=== PATIENT | male | born 1975 | race Caucasian/White ===

== ENCOUNTER 2024-06-17 13:19 | Outpatient (AMB) | payer OTHER, SELFPAY ==
--- NOTE | 2024-06-17 13:21 | A.OFFPC_ITS ---
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 Intake Note: patient here for new patient visit c/o bilateral redness on back of hand Ship'S Officer Required: No Allergies No Known Allergies Allergy (Verified 06/17/24 13:42) Medication List - Last Reconciled 06/17/24 by Elin Gallardo CNP No Known Home Meds Tobacco use date assessed: 06/17/24 Dental Screening Dental Screen Date: 06/17/24 Did you have a dental visit in the last 12 months?: No Did you have a dental problem in the last 6 months where you did not have access to dental care?: No Was dental information given to patient?: Patient has dentist HPI HPI Comments History of Present Illness Details New patient Prior PCP? - [facility] Last office visit/CPE - Over 10 years Last CPE 07/07/2023 at [facility] Last Labs - About 12 months ago Acute issue(s) - Reports red, moderately itchy rash to the dorsum of both hands, the rash started about a year ago and has spread. He also reports intermittent blisters the forearms to his forearms and lower legs (below the knees) and becomes itchy and scabbed after he scratches them. He has apply multiple [id number]-[id number] creams without improvement. No one in his household has similar rash. He has never been followed by Dermatology. Past Medical History - None Surgical History - None Family History - Mom: HTN, DM, HLD Social History - Nonsmoker. Does not vape. Does not dr ink alcohol. Denies recreational drug use - Has been making healthy dietary choice s. Walks frequently. Generally sleep well Health maintenance - He has never had an eye exam. Referred to Ophthalmology for routine eye care - Last dental visit was couple of years ago; encouraged to schedule an appointment with his dentist for routine dental care - He has never been vaccinated for tetan us; encouraged vaccination but patient declines - Has not been vaccinated for the flu ; declines vaccination - He has never been vaccinated for shing les or pneumonia; encouraged to get vaccinated for both but patient declines - He has never had a colonoscopy. Referr ed [place] [facility] Family History (Updated 06/17/24 @ 13:38 by Latoya Lopez MA) Mother High blood pressure High cholesterol Diabetes Social History Housing: House Patient Tobacco Use Status: Never used Tobacco e-Cigarette/Vaping Use: Never Used Second Hand Smoke Exposure: No service: No Current occupational status: employed Current occupation: line haul truck driver Current occupational exposures/hazards: No Cognitive needs: No Hearing needs: No Vision needs: No Questionnaire PHQ-9 Over the last 2 weeks, how often have you been bothered by any of the following problems? 1. Little interest or pleasure in doing things: not at all 2. Feeling down, depressed, or hopeless: not at all 3. Trouble falling or staying asleep, or sleeping too much: not at all 4. Feeling tired or having little energy: not at all 5. Poor appetite or overeating: not at all 6. Feeling bad about yourself - or that you are a failure or have let yourself or your family down: not at all 7. Trouble concentrating on things, such as reading the newspaper or watching television: not at all 8. Moving or speaking so slowly that other people could have noticed. Or the opposite - being so fidgety or restless that you have been moving around a lot more than usual: not at all 9. Thoughts that you would be better off or of hurting yourself in some way: not at all Total score: 0 Depression Screening Interpretation: Negative Depression Screening Done: Yes 95524 - PHQ-9 Billing: Yes Source: Developed by Drs. Charly Mishra, Kristin Mcclure, Venkatesh Frey and colleagues, with an educational pete from [employer]. Thrive Questionnaire Date Thrive assessed: 06/17/24 I am a: Patient What is your living situation today?: I have a steady place to live Within the past 12 months, did the food you bought not last and you didn't have the money to get more?: I choose not to answer this question Within the past 12 months, did you worry whether your food would run out before you got money to buy more?: I choose not to answer this question Do you have trouble paying for medicines?: No Do you have trouble getting transportation to medical appointments?: No Do you have trouble paying your heating and electricity bill?: No Do you have trouble taking care of your child, family member or friend?: No Do you have trouble with day-to-day activities such as bathing, preparing meals, shopping, managing finances, etc.?: No Are you currently unemployed and looking for a job?: No Are you interested in more education?: No Please select the resources that you would like help with: None Currently or been in a relationship where the following occur: I choose not to answer THRIVE Score: 0 AUDIT C Alcohol Use Questionnaire (AUDIT-C) 1. How often do you have a drink containing alcohol?: Never Total Score: 0 Score Reviewed/Action Taken: Yes MEME-7 AMB Questionnaire MEME-7 Date MEME - 7 assessed: 06/17/24 Feeling nervous, anxious, or on edge: 0 = Not at all Not being able to stop or control worryin = Not at all Worrying too much about different things: 0 = Not at all Trouble relaxin = Not at all Being so restless that it is hard to sit still: 0 = Not at all Becoming easily annoyed or irritable: 0 = Not at all Feeling afraid as if something awful might happen: 0 = Not at all Total MEME-7 score (0-4 normal; 5-9 mild; 10-14 moderate; 15-21 severe): 0 Source: Developed by Drs. Charly Mishra, Kristin Mcclure, Venkatesh Frey and colleagues, with an educational pete from [employer]. MEME-7 Assessment Billing MEME-7 Assessment Tool: MEME-7 Assessment 36524 Review of Systems Const Details: Denies chills, Denies fatigue, Denies fever(s), Denies headache(s) and Denies weakness HEENT Denies change in vision, Denies dizziness, Denies headache(s), Denies hearing loss, Denies nasal congestion, Denies sinus pain, Denies sinus pressure and Denies sore throat Card Denies chest pain, Denies lightheadedness, Denies dyspnea and Denies other (palpitations) Resp Denies cough, Denies dyspnea and Denies wheezing GI Denies abdominal pain, Denies melena, Denies hematochezia, Denies change in bowel habits, Denies dyspepsia and Denies nausea Denies hematuria and Denies dysuria Musc Denies abnormal gait, Denies myalgias, Denies arthralgias, Denies numbness and Denies tingling Skin/Breast Reports as per HPI Neuro Denies abnormal gait, Denies dizziness, Denies headache(s), Denies memory loss, Denies numbness, Denies Sensory deficit (Neuro), Denies tingling and Denies weakness Psych Denies anxiety, Denies depression and Denies memory loss Endo Denies cold intolerance, Denies fatigue, Denies heat intolerance, Denies polydipsia and Denies polyuria Efraín/Lymph Denies easy bleeding and Denies easy bruising Aller/Immun Denies wheezing Physical exam (Primary Care) Vital Signs: Last Vital Signs Temp 98.2 F 06/17/24 13:29 Pulse 66 06/17/24 13:29 Resp 16 06/17/24 13:29 BP 127/68 06/17/24 13:29 Pulse Ox 99 06/17/24 13:29 Oxygen Delivery Method Room Air 06/17/24 13:29 BMI result Body Mass Index 31.9 Tobacco/Smoking Status: Tobacco use Status Tobacco use date assessed 06/17/24 06/17/24 13:29 Patient Tobacco Use Status Never used Tobacco 06/17/24 13:29 e-Cigarette/Vaping Use Never Used 06/17/24 13:29 PHQ-9: PHQ-9 Score PHQ-9: Total score 0 06/17/24 13:25 Depression Screening Interpretation: Negative Thrive Assessment: Date of Thrive Assessment Date Thrive assessed 06/17/24 06/17/24 13:25 Currently or been in a relationship where the following occur: I choose not to answer Const Other: General: no acute distress, well developed, alert and awake Nutritional Appearance: well nourished Orientation/consciousness: patient oriented x3 HENMT Head: Yes normocephalic and Yes atraumatic Ears: hearing grossly normal bilaterally and TM's normal bilaterally General nose exam: Normal external nose present and Normal nares present Mouth: Normal oral and palatal mucosa present and moist mucous membranes Teeth and gingiva: dentition normal Throat: Yes oropharynx normal Eyes Pupils: Equal, round and reactive pupils present and Pupil accommodation reflex normal EOM: EOMs intact bilaterally Neck Neck: Yes normal visual inspection, Yes no lymphadenopathy and Yes trachea midline Thyroid: Thyroid normal Carotids: no bruits Lymphatic: no lymphadenopathy noted Chest Chest palpation & inspection: normal inspection of the chest Resp Effort & Inspection: normal respiratory effort Auscultation: clear to auscultation bilaterally Cardio Rate: regular rate Rhythm: regular rhythm Heart sounds: S1 normal heart sound present, S2 normal heart sound present, no gallops, no murmurs and no rubs Bruits: no abdominal aortic bruits and no carotid bruits GI Palpation (GI): No Abdominal aortic bruit present, Soft to palpation, nontender, No hepatosplenomegaly present and No Rebound tenderness present Auscultation: normal bowel sounds General: Yes no CVA tenderness Back/Spine/Pelvis Back: no CVA tenderness Cervical Spine: cervical ROM normal and No Cervical spine tenderness Thoracic/Lumbar Spine: thoraco-lumbar ROM normal, No pain with thoraco-lumbar ROM, No thoracic spinal tenderness and No lumbar spinal tenderness Skin General: warm and dry. Normal skin color. Normal skin turgor Lesions: no lesions Rashes: Erythemic, scaly patches to the dorsum of both hands and red few scabs streaks to the forearms and legs (from knees to ankle), no overt infection Trauma: no lacerations or abrasions Wounds: no wounds Nails: normal Neuro General: patient oriented x3, gait normal and CN's II-XI intact bilaterally Cranial nerves: Yes Equal, round and reactive pupils present Cognition (Neuro): normal cognition Gait exam (Neuro): Normal gait present Motor exam (neuro): 5/5 motor strength present throughout Sensory Exam: No Sensory deficit (Neuro) Deep tendon reflexes (DTR's): Right patellar reflex intensity grade: 2+ and Left patellar reflex intensity grade: 2+ Extrem General: Yes normal to inspection, No edema and No calf tenderness Psych Appearance: grossly normal Affect: normal affect Attitude: cooperative Thought process: Normal thought process present Coding Level of Care Code New Pt Level 4 (25896) Diagnoses Rash R21 Eye exam, routine Z01.00 Colon cancer screening Z12.11 Laboratory tests ordered as part of a complete physical exam (CPE) Z00.00 Additional Codes MEME-7 Assessment Billing - MEME-7 Assessment Tool: MEME-7 Assessment 36514 ([id number]) PHQ-9 - 50472 - PHQ-9 Billing: Yes ([id number]) Assessment & Plan Assessment & Plan (1) Rash: Code(s): R21 - Rash and other nonspecific skin eruption Category: Medical Plan: Reports red, moderately itchy rash to the dorsum of both hands, the rash started about a year ago and has spread. He also reports intermittent blisters the forearms to his forearms and lower legs (below the knees) and becomes itchy and scabbed after he scratches them. He has apply multiple eimu-hit-jvbureu creams without improvement. No one in his household has similar rash. He has never been followed by Dermatology. Erythemic, scaly patches to the dorsum of both hands and red few scabs streaks to the forearms and legs (from knees to ankle), no overt infection. Not consistent with eczema or psoriasis. Autoimmune reaction is possible. Triamcinolone ointment ordered; advised to apply to rash twice daily as needed. May wear cotton gloves after application of ointment to his hands during hours of sleep to prevent rubbing off the medication. Referred to dermatology. Follow-up with worsening or new signs and symptoms. Verbalized understanding and agreed with treatment plan. (2) Eye exam, routine: Code(s): Z01.00 - Encounter for examination of eyes and vision without abnormal findings Category: Medical Plan: He has never had an eye exam. Referred to Ophthalmology for routine eye care. (3) Colon cancer screening: Code(s): Z12.11 - Encounter for screening for malignant neoplasm of colon Category: Medical Plan: He has never had a colonoscopy. Referred to [facility] [place] for a colonoscopy. (4) Laboratory tests ordered as part of a complete physical exam (CPE): Code(s): Z00.00 - Encounter for general adult medical examination without abnormal findings Category: Medical Plan: Fasting labs ordered as part of a complete physical exam. Advised to fast for at least 10 hours before getting labs drawn. May drink water Verbalized understanding and agreed with treatment plan. Orders: Orders UA CC w/rflx Micro + Cult Today Z00.00 - Encounter for general adult medical examination without abnormal findings PSA, Ultra Sensitive Today Z00.00 - Encounter for general adult medical examination without abnormal findings Complete Blood Count Auto Diff Today Z00.00 - Encounter for general adult medical examination without abnormal findings Comprehensive [place]. Panel Fast Today Z00.00 - Encounter for general adult medical examination without abnormal findings Lipid Panel Today Z00.00 - Encounter for general adult medical examination without abnormal findings TSH reflex Free T4 Today Z00.00 - Encounter for general adult medical examination without abnormal findings Vitamin D 25-OH Total Today Z00.00 - Encounter for general adult medical examination without abnormal findings Microalbumin, Random (w Creat) Today Z00.00 - Encounter for general adult medical examination without abnormal findings Referrals Ophthalmology Referral Z01.00 - Encounter for examination of eyes and vision without abnormal findings Dermatology Referral R21 - Rash and other nonspecific skin eruption Gastroenterology Referral Z12.11 - Encounter for screening for malignant neoplasm of colon Medications: New triamcinolone acetonide 0.1% 1 appl topical BID 80 grams 2RF triamcinolone acetonide 0.1% 1 appl topical BID PRN 80 grams 2RF itching
[2024-06-17 13:29] VITALS: BP 127/68; PULSE 66; RESP 16; TEMP 36.8; O2SAT 99; BMI 31.9
== END 2024-06-17 14:15 | disposition home or self-care (01) ==
LOC: HO.HMCFM 13:20
PROVIDERS: PCP Nurse Practitioner Family; Visit Provider Nurse Practitioner Family
DX: R21 Rash and other nonspecific skin eruption (principal); Z01.00 Encounter for examination of eyes and vision without abnormal findings; Z12.11 Encounter for screening for malignant neoplasm of colon; Z00.00 Encounter for general adult medical examination without abnormal findings

== ENCOUNTER → 2024-06-17 13:19 | Outpatient (BNVA) | payer OTHER, SELFPAY | PROVIDERS: PCP Nurse Practitioner Family; Visit Provider Nurse Practitioner Family | DX: Z00.00 Encounter for general adult medical examination without abnormal findings (principal); R21 Rash and other nonspecific skin eruption | CPT/HCPCS: 96127; 99202 ==

== ENCOUNTER 2024-07-15 10:30 | Outpatient (REF) | payer OTHER, SELFPAY ==
[2024-07-15 14:08] LABS: Appearance Urine Turbid; Color Urine Yellow; Glucose Urine UA Negative (Negative); Leukocyte Esterase Urine Negative (Negative); MANUAL DIFF FLAG NO; Nitrite Urine Negative (Negative); PH 5.5 (5.0-9.0); Specific Gravity - Urine 1.025 (1.005-1.025); Urine Blood Negative (Negative); Urine Ketones Negative (Negative); Urine Protein Negative (Neg-Trace)
[2024-07-15 14:12] LABS: Basophils Percent Auto 0.5 % (0-2); Eosinophils Absolute Auto 0.1 X10*3/uL (0.0-0.4); Eosinophils Percent Auto 1.9 % (0-4); Hematocrit 38.6 % (42.0-52.0); Hemoglobin 13.2 g/dl (14.0-18.0); Imm Gran Abs Auto 0.04 X10*3/uL (0.00-0.03); Imm Gran Pct Auto 0.7 % (0.0-0.4); Lymphocytes Absolute Auto 1.8 X10*3/uL (1.2-4.9); Lymphocytes Percent Auto 31.4 % (20-40); Mean Corpuscular HGB Conc 34.2 g/dl (31.0-36.0); Mean Corpuscular Hemoglobin 31.4 pg (27.0-33.0); Mean Corpuscular Volume 91.7 fL (80.0-98.0); Mean Platelet Volume 12.3 fL (9.4-12.4); Monocytes Absolute Auto 0.5 X10*3/uL (0.1-1.2); Monocytes Percent Auto 7.9 % (2-11); Neutrophils Absolute Auto 3.3 x10*3/uL (2.0-8.3); Neutrophils Percent Auto 57.6 % (45-73); Platelet Count 211 X10*3/uL (160-400); Red Blood Count 4.21 X10*6/uL (4.60-5.80); Red Cell Distribution Width 11.5 % (11.0-16.0); White Blood Count 5.8 X10*3/uL (4.8-10.8)
[2024-07-15 14:34] LABS: Alanine Aminotransferase 54 U/L (0-40); Alkaline Phosphatase 44 U/L (39-117); Anion Gap 8 (12-20); Aspartate Amino Transferase 39 U/L (5-37); Bilirubin Total 0.6 mg/dL (0.0-1.0); Blood Urea Nitrogen 16 mg/dL (9-16); Calcium 8.7 mg/dL (8.4-10.2); Carbon Dioxide 23 mmol/L (22-29); Chloride 111 mmol/L (96-108); Cholesterol 187 mg/dL (<200); Estimated Glomerular Filt Rate > 60; Glucose Fasting 95 mg/dL (60-99); HDL Cholesterol 37 mg/dL (>40); LDL Cholesterol Calculated 134 mg/dL (<100); Sodium 138 mmol/L (135-145); Total Protein 6.6 g/dL (6.5-8.0); Triglycerides 83 mg/dL (<150)
[2024-07-15 14:40] LABS: Creatinine Urine 164.83 mg/dL; Microalbumin Urine < 5.0 mg/L
[2024-07-15 14:56] LABS: TSH reflex Free T4 1.27 uIU/mL (0.32-4.0); Vitamin D 25-OH Total 26.8 ng/mL (>30)
[2024-07-19 23:23] LABS: PSA, Ultra Sensitive 0.62 ng/mL
== END 2024-07-15 10:31 | disposition home or self-care (01) ==
LOC: HO.WFDLDS 10:30
PROVIDERS: Visit Provider Nurse Practitioner Family
DX: Z00.00 Encounter for general adult medical examination without abnormal findings (principal)
CPT/HCPCS: 36415; 80053; 80061; 81003; 82306; 82570; 84153; 84443; 85025

== ENCOUNTER 2024-07-18 13:24 | Outpatient (AMB) | payer OTHER, SELFPAY ==
--- NOTE | 2024-07-18 13:20 | A.OFFPC_ITS ---
Intake Visit Reasons: Telehealth 3 wks labs review Intake Note: patient here for 3 wks Telehealth follow up for lab review Physical Therapy Asst Required: No Allergies No Known Allergies Allergy (Verified 07/18/24 13:21) Tobacco use date assessed: 07/18/24 Dental Screening Dental Screen Date: 07/18/24 Did you have a dental visit in the last 12 months?: Yes Did you have a dental problem in the last 6 months where you did not have access to dental care?: No Was dental information given to patient?: Patient has dentist HPI HPI Comments History of Present Illness Details 49-year-old male [facility] for review of recent lab results. He offers no complaints and denies acute symptoms at this time. [facility] Family History (Updated 06/17/24 @ 13:38 by Latoya Lopez MA) Mother High blood pressure High cholesterol Diabetes Social History Housing: [place] Patient Tobacco Use Status: Never used Tobacco e-Cigarette/Vaping Use: Never Used Second Hand Smoke Exposure: No service: No Current occupational status: employed Current occupation: truck technician Current occupational exposures/hazards: No Cognitive needs: No Hearing needs: No Vision needs: No Questionnaire Thrive Questionnaire Date Thrive assessed: 06/17/24 MEME-7 AMB Questionnaire MEME-7 Date MEME - 7 assessed: 06/17/24 Source: Developed by Drs. Charly Mishra, Kristin Mcclure, Venkatesh Frey and colleagues, with an educational pete from [employer]. Review of Systems Const Details: Denies chills, Denies fatigue, Denies fever(s), Denies headache(s) and Denies weakness Cardiac Denies chest pain, Denies claudication, Denies leg edema, Denies lightheadedness, Denies palpitations, Denies dyspnea, Denies dyspnea on exertion, Denies orthopnea and Denies other (Loss of consciousness) Resp Denies cough, Denies excessive phlegm production, Denies dyspnea, Denies dyspnea on exertion, Denies snoring and Denies wheezing Physical exam (Primary Care) Tobacco/Smoking Status: Tobacco use Status Tobacco use date assessed 07/18/24 07/18/24 13:22 Patient Tobacco Use Status Never used Tobacco 07/18/24 13:22 e-Cigarette/Vaping Use Never Used 07/18/24 13:22 Thrive Assessment: Date of Thrive Assessment Date Thrive assessed 06/17/24 07/18/24 13:22 Const Other: Patient is alert oriented x3. Telehealth Telehealth Telehealth Platform: Telephone Location of provider rendering services: practice address Location of patient: address on file Patient Identification confirmed using: Name, : Yes Telehealth method: voice only Patient verbally consented to treatment: Yes Patient verbally consented to billing insurance company: Yes Patient informed of any privacy concerns related to visit: Yes Coding Level of Care Code Tele Est Pt Level 3 (74068) Diagnoses Dyslipidemia E78.5 Vitamin D deficiency E55.9 Transaminitis R74.01 Normocytic anemia D64.9 Time Spent (min) 15 Assessment & Plan Assessment & Plan (1) Dyslipidemia: Code(s): E78.5 - Hyperlipidemia, unspecified Category: Medical Plan: Recent LDL is slightly elevated, 134, HDL level is slightly low, 37. Likely related to diet. Advised to limit foods high in saturated fat and avoid foods high in trans fat. Routine exercise encouraged. Fast for 10-12 hours, may drink water, performed lipid panel blood work 2-3 days before next visit. Follow-up for telehealth visit in 2 months. Return sooner with symptoms or concerns. Verbalized understanding and agreed with the plan. (2) Vitamin D deficiency: Code(s): E55.9 - Vitamin D deficiency, unspecified Category: Medical Plan: Recent vitamin-D level is slightly low, 26.8. Vitamin D3 25 mcg daily ordered; advised to take as prescribed. Informed that the sun is a good source of vitamin-D. Will recheck vitamin-D level in 8 weeks. Verbalized understanding and agreed with the plan. (3) Transaminitis: Code(s): R74.01 - Elevation of levels of liver transaminase levels Category: Medical Plan: Recent ALT and AST level a slightly elevated, 39 and 54 respectively. Fatty liver disease is likely. Routine exercise and diet, including low-fat encouraged. Will recheck liver panel in 8 weeks. Verbalized understanding and agreed with the plan. (4) Normocytic anemia: Code(s): D64.9 - Anemia, unspecified Category: Medical Plan: Recent RBC is slightly low, 4.21, H&H is slightly low, 13.2/38.6, MCV is normal, 91.7. Will recheck RBC and will check iron profile, ferritin, vitamin B12, and folate levels, and will make changes as needed. Verbalized understanding and agreed with the plan. Orders: Orders Complete Blood Count no Diff 2 Months D64.9 - Anemia, unspecified IRON PROFILE 2 Months D64.9 - Anemia, unspecified Vitamin B12 and Folate 2 Months D64.9 - Anemia, unspecified Ferritin 2 Months D64.9 - Anemia, unspecified Vitamin D 25-OH Total 2 Months E55.9 - Vitamin D deficiency, unspecified Lipid Panel 2 Months E78.5 - Hyperlipidemia, unspecified Liver Panel 2 Months R74.01 - Elevation of levels of liver transaminase levels Medications: New cholecalciferol (vitamin D3) 25 mcg PO DAILY 90 days 90 tabs 1RF
== END 2024-07-18 16:00 | disposition home or self-care (01) ==
LOC: HO.HMCFM 13:24
PROVIDERS: PCP Nurse Practitioner Family; Visit Provider Nurse Practitioner Family
DX: E78.5 Hyperlipidemia, unspecified (principal); E55.9 Vitamin D deficiency, unspecified; R74.01 Elevation of levels of liver transaminase levels; D64.9 Anemia, unspecified

== ENCOUNTER → 2024-07-18 13:24 | Outpatient (BNVA) | payer OTHER, SELFPAY | PROVIDERS: PCP Nurse Practitioner Family; Visit Provider Nurse Practitioner Family ==